=== PATIENT | male | born 2000 | race Caucasian/White ===

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

== ENCOUNTER 2021-07-08 11:53 | Emergency (ER) | payer BC, OTHER ==
[~2021-07-08] VITALS: Ht 170.2 cm; Wt 104.3 kg
[2021-07-08 12:05] VITALS: BP_SYST 149
--- NOTE | 2021-07-08 12:05 | NUR ---
PT TO REMAIN IN THE ER LOBBY UNTIL ER BED BECOMES AVAILABLE.
--- NOTE | 2021-07-08 12:50 | NUR ---
DR. BRODERICK TO TRIAGE TO ASSESS.
--- NOTE | 2021-07-08 13:20 | NUR ---
PT TO BED 2 FOR EVALUATION.
[2021-07-08] MEDS ORDERED: IBUP-1971 PO (13:23)
[2021-07-08] MEDS ORDERED: SOM350 PO (13:23)
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
--- NOTE | 2021-07-08 13:50 | NUR ---
Patient given written and verbal discharge instructions and verbalizes understanding. ER Dr. Barr discussed with patient the results and treatment provided. Patient in stable condition. ID arm band removed. Rx of Soma and Motrin given. Patient educated on pain management and to follow up with PMD. Pain Scale 3. Opportunity for questions provided and answered. Medication side effect fact sheet provided.
[2021-07-08 14:07] VITALS: BP_SYST 123
== END 2021-07-08 14:07 | disposition home or self-care (01) ==
LOC: SED 11:53
DX: S33.5XXA Sprain of ligaments of lumbar spine, initial encounter (principal); S13.4XXA Sprain of ligaments of cervical spine, initial encounter; I10 Essential (primary) hypertension; Z79.899 Other long term (current) drug therapy; V03.90XA Pedestrian on foot injured in collision with car, pick-up truck or van, unspecified whether traffic or nontraffic accident, initial encounter; Y93.89 Activity, other specified; Y92.89 Other specified places as the place of occurrence of the external cause; Y99.8 Other external cause status
CPT/HCPCS: 72040-TC; 72100-TC; 99284

== ENCOUNTER 2023-01-09 17:36 | Emergency (ER) | payer BC ==
[~2023-01-09] VITALS: Ht 170.2 cm; Wt 99.8 kg
[2023-01-09 17:36] VITALS: BP_SYST 140
[~2023-01-09 17:36] MED LIST: IBUP-1971 PO; SOM350 PO
--- NOTE | 2023-01-09 17:36 | NUR ---
Patient triaged and placed in waiting room. VSS and patient appears in no acute distress at this time. Accompanied by FATHER, awaiting available bed, and MD notified of need for MSE.
--- NOTE | 2023-01-09 17:50 | NUR ---
PT STATES THAT SINCE ABOUT MIDNIGHT LAST NIGHT HE HAS BEEN HAVING NAUSEA, VOMITING AND DIARRHEA WITH BODY ACHES. PT DENIES USING ANY ALCOHOL OR MARIJUANA.
--- NOTE | 2023-01-09 18:00 | NUR ---
AWAITING ER BED AVAILABILITY
--- NOTE | 2023-01-09 19:19 | NUR ---
Dr. Rossi at bedside examining the patient.
[2023-01-09] MEDS ORDERED: ONDANSETRON 4 MG ODT TAB PO ONE ×2 (19:30→21:30)
[2023-01-09 19:45] LABS: BASOPHILS % (AUTO) 0.1 % (0.0-2.0); HEMATOCRIT 45.4 % (36-54); HEMOGLOBIN 15.5 g/dL (14.0-18.0); LYMPHOCYTES # (AUTO) 0.5 K/uL (1.0-5.5); LYMPHOCYTES % (AUTO) 7.8 % (20.5-51.5); MEAN CORPUSCULAR HEMOGLOBIN 31 pg (27-31); MEAN CORPUSCULAR HGB CONC 34 % (32-36); MEAN CORPUSCULAR VOLUME 89 fL (79.0-98.0); MONOCYTES # (AUTO) 0.7 K/uL (0.0-1.0); MONOCYTES % (AUTO) 10.6 % (1.7-9.3); NEUTROPHILS # (AUTO) 5.1 K/uL (1.8-7.7); NEUTROPHILS % (AUTO) 81.5 % (40.0-70.0); PLATELET COUNT (AUTO) 171 K/uL (130-430); RED BLOOD CELL COUNT(AUTO) 5.08 MIL/uL (4.2-6.2); RED CELL DISTRIBUTION WIDTH 13.3 % (9.0-15.0); WHITE BLOOD COUNT (AUTO) 6.2 K/uL (4.8-10.8)
[2023-01-09 20:07] LABS: CALCIUM 8.8 mg/dL (8.4-11.0); CREATININE 1.06 mg/dL (0.55-1.30)
[2023-01-09 20:11] LABS: ALBUMIN 3.8 g/dL (3.4-4.8); TOTAL BILIRUBIN 2.1 mg/dL (0.0-1.0)
[2023-01-09] MEDS ORDERED: KETOROLAC TROMETHAMINE 60 MG/2 ML VIAL IM ONE (21:30)
[2023-01-09] MEDS ORDERED: IBUP-1971 PO (22:16)
[2023-01-09] MEDS ORDERED: ONDA-8 TL (22:16)
[2023-01-09 22:20] LABS: BILIRUBIN,URINE NEGATIVE (NEGATIVE); BLOOD, URINE NEGATIVE (NEGATIVE); CLARITY/URINE CLEAR (CLEAR); COLOR,URINE YELLOW (YELLOW); GLUCOSE,URINE NEGATIVE (NEGATIVE); KETONES,URINE 3+ (NEGATIVE); LEUKOCYTE ESTERASE ,URINE NEGATIVE (NEGATIVE); NITRITE, URINE NEGATIVE (NEGATIVE); PROTEIN URINE NEGATIVE (NEGATIVE); UROBILINOGEN,URINE 0.2 (0.2-1.0)
[2023-01-09 22:41] VITALS: BP_SYST 134
--- NOTE | 2023-01-09 22:43 | NUR ---
Patient given written and verbal discharge instructions and verbalizes understanding. ER MD discussed with patient the results and treatment provided. Patient in stable condition. ID arm band removed. Rx of IBUPROFEN AND ZOFRAN given. Patient educated on pain management and to follow up with PMD. Pain Scale 0/10. Opportunity for questions provided and answered. Medication side effect fact sheet provided.
== END 2023-01-09 22:41 | disposition home or self-care (01) ==
LOC: SED 17:36
DX: B34.9 Viral infection, unspecified (principal); R11.10 Vomiting, unspecified; M79.10 Myalgia, unspecified site; I10 Essential (primary) hypertension; Z79.899 Other long term (current) drug therapy
CPT/HCPCS: 99283; 80053; 85025; 36415; 96372; 81003; Q0162; J1885